=== PATIENT | female | born 1945 | race Caucasian/White ===

== ENCOUNTER 2019-04-05 14:26 | Emergency (ER) | payer MEDICARE, MEDICAID ==
[~2019-04-05] VITALS: Ht 154.9 cm; Wt 63.5 kg
[~2019-04-05 14:26] MED LIST: AZITHROMYCIN500 MG ORAL; CEPHALEXIN500 M1 ORAL; LEVOTHYROXINE75 MCG ORAL; MECLIZINE HCL25 MG ORAL; QUETIAPINE FUM100 MG ORAL; RISPERDAL1 MG PO; SEROQUEL100 MG ORAL
--- NOTE | 2019-04-05 14:34 | NUR ---
ED Nurse Note: pt ambulated to ed c/o left hip pain x 2 years. pt states two years ago she fell down when walking.
[2019-04-05 14:35] VITALS: BP 153/80
--- NOTE | 2019-04-05 14:46 | Emergency Room Report ---
History of Present Illness General Chief Complaint: Pain Source: Patient Present Illness HPI 73-year-old female with history of schizophrenia currently controlled and hypothyroidism currently controlled with levothyroxine here complaining of chronic left-sided hip pain x2 years. Patient reports that 2 years ago she fell on her left hip and never had any x-rays done. Complains that when she walks a lot she starts having a sharp pain in the left hip radiating to the left lower extremity rating it 5 out of 10. Denies tingling and numbness. Has range of motion. Can apply pressure to the affected area. Refuses to get any x -rays done. Does not want to take any pain medication. Agrees to use topical ointments for pain. Denies other associated symptoms. Is sitting comfortably with stable vital signs. No deformity of the hip noted. No bony tenderness noted. Allergies: Coded Allergies: ASPIRIN (Verified Allergy, Unknown, 03/02/19) CODEINE (Verified Allergy, Unknown, 03/02/19) OXYCODONE (Verified Allergy, Unknown, 03/02/19) Patient History Past Medical History: see triage record Past Surgical History: none Pertinent Family History: none Now: No Immunizations: UTD Reviewed Nursing Documentation: PMH: Agreed; PSxH: Agreed Nursing Documentation-PMH Past Medical History: No History, Except For Hx Seizures: Yes Review of Systems All Other Systems: negative except mentioned in HPI Physical Exam Vital Signs Date Time Temp Pulse Resp B/P (MAP) Pulse Ox O2 Delivery O2 Flow Rate FiO2 04/05/19 14:29 98.1 83 18 153/80 (104) 98 Room Air Sp02 EP Interpretation: reviewed, normal General Appearance: well appearing, no apparent distress Head: normocephalic, atraumatic Eyes: bilateral eye normal inspection, bilateral eye PERRL ENT: hearing grossly normal, normal voice Neck: full range of motion, supple, no carotid bruits Respiratory: lungs clear, no rhonchi, no respiratory distress, no wheezing, speaking full sentences Cardiovascular #1: normal peripheral pulses, regular rate, rhythm, no edema, no murmur, normal capillary refill Cardiovascular #2: 2+ dorsalis pedis (R), 2+ dorsalis pedis (L) Gastrointestinal: non tender, soft Genitourinary: no CVA tenderness Musculoskeletal: gait/station normal, normal range of motion, digits/nails normal, back normal, pelvis stable Neurologic: alert, oriented, normal gait Psychiatric: judgement/insight normal, mood/affect normal Skin: normal color, no rash Lymphatic: no adenopathy Medical Decision Making PA Attestation Diagnosis and treatment plans were reviewed and discussed with my supervising physician Dr. George Diagnostic Impression: Primary Impression: Chronic hip pain ER Course 73-year-old female with history of schizophrenia currently controlled and hypothyroidism currently controlled with levothyroxine here complaining of chronic left-sided hip pain x2 years. Patient reports that 2 years ago she fell on her left hip and never had any x-rays done. Complains that when she walks a lot she starts having a sharp pain in the left hip radiating to the left lower extremity rating it 5 out of 10. Denies tingling and numbness. Has range of motion. Can apply pressure to the affected area. Refuses to get any x -rays done. Does not want to take any pain medication. Agrees to use topical ointments for pain. Denies other associated symptoms. Is sitting comfortably with stable vital signs. No deformity of the hip noted. No bony tenderness noted. Ddx considered but are not limited to: Hip fracture versus contusion versus sprain versus strain versus chronic hip pain Vital signs: are WNL, pt. is afebrile H&PE are most consistent with: Chronic hip pain ORDERS: Refuses x-ray, Voltaren gel ER intervention: None DISCHARGE: At this time pt. is stable for d/c to home. Will provide printed patient care instructions, and any necessary prescriptions. Care plan and follow up instructions have been discussed with the patient prior to discharge. I gave patient a list of free clinics he can stop with primary care doctor. Take medication as directed, follow with primary care provider, avoid strenuous physical activity with affected side. If worsening symptoms return to the emergency room Last Vital Signs Date Time Temp Pulse Resp B/P (MAP) Pulse Ox O2 Delivery O2 Flow Rate FiO2 04/05/19 14:35 98.1 77 18 153/80 98 Room Air Disposition: HOME, SELF-CARE Condition: Stable Scripts Diclofenac Sodium (VOLTAREN) 100 Gm Gel..gram. 2 GM TP TID, #100 GM Prov: Moraima Thomas 04/05/19 Patient Instructions: Hip Pain Additional Instructions: Follow-up with your primary care doctor for further imaging and referral to physical therapy. Take medication as directed, avoid doing strenuous physical activity if worsening symptoms return to emergency room Moraima Thomas Apr 05, 2019 14:46
[2019-04-05] MEDS ORDERED: VOLTAREN100 G1 TP (14:49)
[2019-04-05 14:53] VITALS: BP 147/79
--- NOTE | 2019-04-05 14:54 | NUR ---
ER DISCHARGE NOTE: Patient is cleared to be discharged per ERMD, pt is aox4, on room air, with stable vital signs. pt was given dc and prescription instructions, pt was able to verbalize understanding, pt id band removed. pt is able to ambulate with steady gait. pt took all belongings.
== END 2019-04-05 14:50 | disposition home or self-care (01) ==
LOC: EMR 14:50
DX: G89.29 Other chronic pain (principal); M25.552 Pain in left hip; F20.9 Schizophrenia, unspecified; E03.9 Hypothyroidism, unspecified; Z88.6 Allergy status to analgesic agent; Z88.5 Allergy status to narcotic agent
CPT/HCPCS: 99282

== ENCOUNTER 2019-04-07 13:42 | Emergency (ER) | payer MEDICARE, MEDICAID ==
[~2019-04-07] VITALS: Ht 152.4 cm; Wt 63.5 kg
[~2019-04-07 13:42] MED LIST changes: +VOLTAREN100 G1 TP
--- NOTE | 2019-04-07 14:10 | Emergency Room Report ---
History of Present Illness General Chief Complaint: Diarrhea Source: Patient Present Illness HPI 73-year-old female presents to the emergency department complaining of watery diarrhea since this morning. Patient reports she has had 3 episodes. She denies blood in the stool or black tarry stools. Patient reports that she took 2 unknown stool softeners this a.m. because she thought she was constipated after not having bowel movement for 3 days. IBS as well as ulcerative colitis. Patient denies abdominal pain at this time. Patient states she does have 6 out of 10 severity left-sided hip pain which she was seen here in the emergency department a few days ago and states that she did not have imaging performed because she refused. Patient reports she continues to have pain and would like to continue her evaluation for that. Patient denies trauma or fall. She denies radiation of her pain she denies paresthesias, saddle anesthesia, urinary incontinence or retention. She denies fevers or chills. She denies nausea vomiting. No other aggravating or relieving factors. Patient denies recent antibiotic use. She denies recent travel or ill contacts with similar symptoms. Allergies: Coded Allergies: ASPIRIN (Verified Allergy, Unknown, 03/02/19) CODEINE (Verified Allergy, Unknown, 03/02/19) OXYCODONE (Verified Allergy, Unknown, 03/02/19) Patient History Past Medical History: see triage record Past Surgical History: none Pertinent Family History: none Now: No Reviewed Nursing Documentation: PMH: Agreed; PSxH: Agreed Nursing Documentation-PMH Past Medical History: No History, Except For Hx Cardiac Problems: No Hx Hypertension: No Hx Pacemaker: No Hx Asthma: Yes Hx COPD: No Hx Diabetes: No Hx Cancer: No Hx Dialysis: No History Of Psychiatric Problem: Yes - PTSD Hx Neurological Problems: No Hx Cerebrovascular Accident: No Hx Seizures: Yes Review of Systems All Other Systems: negative except mentioned in HPI Physical Exam Vital Signs Date Time Temp Pulse Resp B/P (MAP) Pulse Ox O2 Delivery O2 Flow Rate FiO2 04/07/19 14:00 97.9 82 16 159/95 (116) 99 Room Air Sp02 EP Interpretation: reviewed, normal General Appearance: no apparent distress, alert, GCS 15, non-toxic Head: normocephalic, atraumatic Eyes: bilateral eye normal inspection, bilateral eye PERRL ENT: hearing grossly normal, normal voice Neck: full range of motion Respiratory: lungs clear, normal breath sounds, speaking full sentences Cardiovascular #1: regular rate, rhythm, no edema, normal capillary refill Gastrointestinal: normal bowel sounds - hyperactive BS in all 4 quadrants, non tender, soft, non-distended, no guarding Rectal: deferred Musculoskeletal: normal range of motion, gait/station normal, tender - TTP to the lateral aspect of the left hip, no obvious deformity, no erythema or bruising. No difference in leg lengths Neurologic: alert, motor strength/tone normal, oriented x3, sensory intact, responsive, speech normal Psychiatric: judgement/insight normal Skin: normal color Medical Decision Making PA Attestation Dr. Oliva is my supervising Physician whom patient management has been discussed with. Diagnostic Impression: Primary Impression: Diarrhea Qualified Codes: R19.7 - Diarrhea, unspecified Additional Impression: Hip pain, left ER Course 73-year-old female presents to the emergency department complaining of watery diarrhea since this morning. Patient reports she has had 3 episodes. She denies blood in the stool or black tarry stools. Patient reports that she took 2 unknown stool softeners this a.m. because she thought she was constipated after not having bowel movement for 3 days. IBS as well as ulcerative colitis. Patient denies abdominal pain at this time. Patient states she does have 6 out of 10 severity left-sided hip pain which she was seen here in the emergency department a few days ago and states that she did not have imaging performed because she refused. Patient reports she continues to have pain and would like to continue her evaluation for that. Patient denies trauma or fall. She denies radiation of her pain she denies paresthesias, saddle anesthesia, urinary incontinence or retention. She denies fevers or chills. She denies nausea vomiting. No other aggravating or relieving factors. Patient denies recent antibiotic use. She denies recent travel or ill contacts with similar symptoms. Ddx considered but are not limited to Diverticulitis, acute appy, diarrhea, UC, PUD, GE, pancreatitis, gallstone, arthritis, bursitis, fracture/dislocation. Vital signs: are WNL, pt. is afebrile H&PE are most consistent with diarrhea - non bloody, no evidence of acute dehydration/hypovolemia. no evidence of acute abdomen at this time. ORDERS: -Abdominal X-ray 2 views: WNL - X-ray Left Hip : WNL ED INTERVENTIONS: -Bentyl PO -I do not identify an emergent condition at this time. With current presentation , pt. is stable for close outpatient follow up and conservative treatment. D/ w pt. to return promptly to ED with worsening or new symptoms.- Pt. verbalizes' understanding and agreement with proposed treatment plan.proposed treatment plan. DISCHARGE: At this time pt. is stable for d/c to home. Will provide printed patient care instructions, and any necessary prescriptions. Care plan and follow up instructions have been discussed with the patient prior to discharge. Other X-Ray Diagnostic Results Other X-Ray Diagnostic Results #1: X-Ray ordered: Abdominal xray # of Views/Limited Vs Complete: 4 View Indication: Pain EP Interpretation: Yes PA Xray: Interpretation reviewed, by supervising MD, and agrees with findings. Interpretation: nonspecific bowel gas, no sbo Impression: No acute disease Electronically Signed by: Lynette Puente PA-C Other X-Ray Diagnostic Results #2: X-Ray ordered: Left Hip # of Views/Limited Vs Complete: 2 View Indication: Pain EP Interpretation: Yes PA Xray: Interpretation reviewed, by supervising MD, and agrees with findings. Interpretation: no dislocation, no soft tissue swelling, no fractures Impression: No acute disease Electronically Signed by: Lynette Puente PA-C Last Vital Signs Date Time Temp Pulse Resp B/P (MAP) Pulse Ox O2 Delivery O2 Flow Rate FiO2 04/07/19 14:00 97.9 82 16 159/95 (116) 99 Room Air Disposition: HOME, SELF-CARE Condition: Stable Scripts Dicyclomine Hcl* (DICYCLOMINE HCL*) 10 Mg Capsule 10 MG ORAL BID, #4 CAP Prov: Lynette Puente 04/07/19 Patient Instructions: Diarrhea, Adult, Food Choices to Help Relieve Diarrhea, Adult Additional Instructions: Take medications as directed. Follow up with a Primary Care Provider in 3-5 days, even if your symptoms have resolved. Return sooner to ED if new symptoms occur, or current symptoms become worse. - Please note that this Emergency Department Report was dictated using [employer] technology software, occasionally this can lead to erroneous entry secondary to interpretation by the dictation equipment. Lynette Puente Apr 07, 2019 14:10
[2019-04-07 14:31] VITALS: BP 159/95
[2019-04-07] MEDS ORDERED: Dicyclomine 10mg Cap ORAL ONE (15:45)
--- NOTE | 2019-04-07 16:12 | Diagnostic Imaging Report ---
Indications: Left hip pain Findings: Two views of the left hip were obtained. No acute fracture is demonstrated. Alignment of the hip is within normal limits. Bones are osteopenic. Soft tissues are unremarkable. Impression: Negative for acute injury.
--- NOTE | 2019-04-07 16:14 | Diagnostic Imaging Report ---
Indication: Abdominal pain Comparison: None Single view of the abdomen obtained Findings: Bowel gas pattern is nonspecific. No mass, ectopic calcifications, or abnormal gas collections are identified. The bones are osteopenic. There is narrowing of intervertebral discs and accompanying endplate osteophyte formation. Hypertrophied facet joints also demonstrated. . Impression: No acute findings
[2019-04-07] MEDS ORDERED: DICYCLOMINE HCL10 MG ORAL (16:16)
[2019-04-07 16:20] VITALS: BP 159/95
--- NOTE | 2019-04-07 16:20 | NUR ---
ER DISCHARGE NOTE: Patient is cleared to be discharged per ERMD, pt is aox4, on room air, with stable vital signs. pt was given dc and prescription instructions, pt was able to verbalize understanding, pt is able to ambulate with steady gait. pt took all belongings.
== END 2019-04-07 16:20 | disposition home or self-care (01) ==
LOC: EMR 14:39
DX: R19.7 Diarrhea, unspecified (principal); M25.552 Pain in left hip; J45.909 Unspecified asthma, uncomplicated; G40.909 Epilepsy, unspecified, not intractable, without status epilepticus; Z88.6 Allergy status to analgesic agent; Z88.5 Allergy status to narcotic agent
CPT/HCPCS: 74019; 99284